=== PATIENT | male | born 2000 | race Caucasian/White ===

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

== ENCOUNTER 2020-09-25 21:32 | Emergency (ER) | payer OTHER, SELFPAY ==
[2020-09-25 21:44] VITALS: BP 141/63; PULSE 94; RESP 15; TEMP 36.9; O2SAT 100; BMI 19.9
--- NOTE | 2020-09-25 22:47 | ED.DENTAL ---
HPI - Dental/Oral General Chief complaint: Dental/Oral Stated complaint: severe mouth pain Time Seen by Provider: 09/25/20 22:46 Source: patient Mode of arrival: Ambulatory Limitations: no limitations History of Present Illness HPI Narrative: This is a 20-year-old male who has had several days of pain in the soft tissue surrounding the 17th tooth and posteriorly. Patient states that he has had increasing discomfort and swelling. He denies swelling of the back of his throat, he denies sore throat. Patient denies any swelling of the face, cheek. He states the pain has been radiating towards the top of his palate. Patient denies any radiation pain to the ear he denies any stridor, hoarseness or dysphagia. Patient states it is painful for him to completely open his mouth. He also states that it is uncomfortable for him to chew pain did origin 8 at the 17th tooth range and in the jaw. He has had similar symptoms on the other side for very short periods. He had has had a history of a root canal but this was 1-2 years prior. He denies fevers, chills no other systemic symptoms. He denies any other medical issues. He has had no trauma, cracked teeth or similar episodes at that location. He denies any other surgeries. No regular medications. He has tried Tylenol which has been minimally to moderately helpful as well as Anusol. MD Complaint: tooth pain Location: Tooth # (17) Related Data Previous Rx's Medication Instructions Recorded penicillin V potassium 500 mg PO QID #40 tab 09/25/20 Allergies Allergy/AdvReac Type Severity Reaction Status Date / Time No Known Drug Allergies Allergy Verified 09/25/20 21:44 Review of Systems Review of Systems ROS Unobtainable: All systems reviewed & are unremarkable except as noted in HPI and below Patient History Social History Smoking Status: Current every day smoker Smoking Status: Current every day smoker tobacco type: e-cigarettes alcohol intake frequency: a few times a week Substance Use Type: does not use Exam Narrative Exam Narrative: GEN: well nourished, well appearing male, alert and oriented x 3, patient appears to be in mild distress. HEENT: Atraumatic, pupils are equal round reactive to light, extraocular movements are intact, nares are clear, TMs are clear with no fluid, there is no conjunctival pallor. Throat is clear without any exudates, erythema, bilateral tonsillar enlargement, with no uvular deviation. Patient has swelling of the soft tissue surrounding the 17 tooth and just posterior at the crease between the upper and lower draw. Patient has tenderness with palpation of the soft tissue. He does not have any purulent drainage. He does not have any facial swelling, no erythema or other skin changes. I am unable to palpate a fluctuant area. No hoarseness, no stridor or dysarthria. HEART: Regular rate and rhythm without murmur, clicks, rubs. LUNGS:Lungs clear to auscultation, no wheezes, rales, crackles, chest moves symmetrically ABD:bowel sounds normal, soft, non-tender, no guarding, rebound, rigidity, no masses noted, no hepatosplenomegaly MSCL: Non-tender,full range of motion, normal gait NEURO:CN 2-12 intact, sensation normal SKIN: See above description. Initial Vital Signs Initial Vital Signs: Vital Signs Temperature 98.5 F 09/25/20 21:44 Pulse Rate 94 H 09/25/20 21:44 Respiratory Rate 15 09/25/20 21:44 Blood Pressure 141/63 H 09/25/20 21:44 Pulse Oximetry 100 09/25/20 21:44 Course Orders Ordered: Discontinued Medications Penicillin V Potassium (Penicillin 250 Mg Tab Prepack) 1 bottle MIS SEEINSTR ONE Stop: 09/25/20 22:56 Last Admin: 09/25/20 23:10 Dose: 1 bottle Documented by: MIKE Vital Signs Vital signs: Vital Signs - 8 hr 09/25/20 23:50 Pulse Rate 69 Respiratory Rate 17 Blood Pressure 118/56 L Pulse Oximetry 99 Discharge Plan Departure Patient Disposition: Home Clinical Impression: Dental infection Instructions: Tooth Abscess Activity Restrictions/Additional Instructions: Follow-up with a dentist in the next 1-2 weeks for recheck. Take antibiotics until they are completely gone, he will need to fill the prescription for your antibiotics and complete it. You may take Tylenol up to a 1000 mg every 8 hours and or ibuprofen up to 800 mg every 8 hours. You may use cold compresses to the area. You may use Anusol or Orajel prior to eating. Return to the ER for fevers greater than 100.4 F, swelling of the face, cheek, tongue, airway or throat changes to the voice, stridor, rapidly increasing pain, purulent drainage, persistent vomiting or other new or concerning symptoms Prescriptions: New penicillin V potassium 500 mg tablet 500 mg PO QID Qty: 40 RF: 0
[2020-09-25] MEDS: PENICILLIN 250 MG TAB PREPACK 1 BOTTLE MISC (23:10)
[2020-09-25 23:50] VITALS: BP 118/56; PULSE 69; RESP 17; O2SAT 99
== END 2020-09-26 00:35 | disposition home or self-care (01) ==
PROVIDERS: Emergency Provider Emergency Medicine
DX: K04.7 Periapical abscess without sinus (principal)
CPT/HCPCS: 99281; 99283

== ENCOUNTER 2021-01-06 03:08 | Emergency (ER) | payer OTHER, MEDICAID, SELFPAY ==
[2021-01-06 03:19] VITALS: BP 120/56; PULSE 63; RESP 16; TEMP 36.9; O2SAT 100; BMI 19.9
--- NOTE | 2021-01-06 03:31 | ED_ITS ---
HPI - General Adult General Chief complaint: Skin/Abscess/Foreign Body Stated complaint: recent tattoo, chest is red feels on fire Time Seen by Provider: 01/06/21 03:14 Source: patient Mode of arrival: Ambulatory Limitations: no limitations History of Present Illness HPI narrative: Patient is a 20-year-old male who 3 days ago had a tattoo on his chest. It was black ink. He states that he has had tattoos in the past without any issues. He states that yesterday he started having some itching and discomfort around the tattoo and that this evening it got worse. He states that it is burning and is red. Has not had any fevers. He did do VA lotion that he normally puts on his stat to. This is not a new exposures for him. Related Data Previous Rx's Medication Instructions Recorded penicillin V potassium 500 mg PO QID #40 tab 09/25/20 Allergies Allergy/AdvReac Type Severity Reaction Status Date / Time No Known Drug Allergies Allergy Verified 09/25/20 21:44 Review of Systems Constitutional Constitutional: Denies fever(s) Eyes Eyes: Denies itchy eyes ENT Ears, Nose, Mouth, and Throat: Denies lip swelling Cardiovascular Cardiovascular: Denies chest pain and Denies dyspnea Respiratory Respiratory: Denies dyspnea and Denies wheezing Integumentary/Breasts Skin/Breast: Reports rash Neurologic Neurologic: Denies behavioral changes Psychiatric Psychiatric: Denies behavioral changes Hematologic/Lymphatic On Anticoagulants: No Allergic/Immunologic Allergic/Immunologic: Denies urticaria, Denies itchy eyes, Denies lip swelling and Denies wheezing Patient History Medical History Healthy adult Social History Smoking Status: Current every day smoker Smoking Status: Current every day smoker tobacco type: e-cigarettes and vaping alcohol intake frequency: a few times a month Substance Use Type: does not use Exam Initial Vital Signs Initial Vital Signs: Vital Signs Temperature 98.4 F 01/06/21 03:19 Pulse Rate 63 01/06/21 03:19 Respiratory Rate 16 01/06/21 03:19 Blood Pressure 120/56 L 01/06/21 03:19 Pulse Oximetry 100 01/06/21 03:19 Const General: cooperative and comfortable Limitations: mental status not altered HENDE Head: normal to inspection and normocephalic Resp Effort & Inspection: normal respiratory effort Skin Other: The black ink tattoo on his chest looks well. There is some redness along the black ink lines and also in between the lines. There are no vesicles. No pustules. Neuro General: patient alert, patient awake and patient oriented x3 Extrem General: normal to inspection and capillary refill normal Psych Appearance: grossly normal and well kempt Course Orders Ordered: Discontinued Medications Diphenhydramine HCl (Diphenhydramine 25 Mg Tablet) 25 mg PO NOW ONE Stop: 01/06/21 03:34 Last Admin: 01/06/21 03:37 Dose: 25 mg Documented by: KIRSTY Vital Signs Vital signs: Vital Signs - 8 hr 01/06/21 03:19 Temperature 98.4 F Pulse Rate 63 Respiratory Rate 16 Blood Pressure 120/56 L Pulse Oximetry 100 Medical Decision Making MDM Narrative Medical decision making narrative: His presentation today appears to be more of a reactive issue rather than a infectious issue. He has never had a reaction like this in the past to tattoo ink. All of the lotions that he has used up to this point he has used in the past without any problems. No indication for antibiotics. I do have some hesitation is starting him on steroids because of the recent tattoo in the concerned about causing an infection. Will give him Benadryl. We did discuss topical Benadryl that he can use at home. Patient could be safely discharged home. He was given return precautions. Expressed understanding and agreement Discharge Plan Departure Patient Disposition: Home Clinical Impression: Tattoo reaction Instructions: Contact Dermatitis Activity Restrictions/Additional Instructions: The exam today is more consistent with a a reaction to the tattoo rather than an infection keep it clean as directed. You can take Benadryl for any itching or discomfort. You can also use the topical Benadryl that she can purchase [id number] like we discussed. Contact your primary provider for follow- up. Return to the emergency department for any new or worsening symptoms Prescriptions: No Action penicillin V potassium 500 mg tablet 500 mg PO QID Qty: 40 RF: 0
[2021-01-06] MEDS: diphenhydrAMINE 25 MG TABLET PO (03:37)
== END 2021-01-06 04:01 | disposition home or self-care (01) ==
PROVIDERS: Emergency Provider Emergency Medicine
DX: L23.89 Allergic contact dermatitis due to other agents (principal)
CPT/HCPCS: 99283

== ENCOUNTER 2021-01-07 13:44 | Emergency (ER) | payer OTHER, MEDICAID, SELFPAY ==
[2021-01-07 13:48] VITALS: BP 148/65; PULSE 80; RESP 16; TEMP 36.9; O2SAT 100
--- NOTE | 2021-01-07 17:34 | ED.SKABFB ---
HPI - Skin/Abscess/Foreign Bdy General Chief complaint: Skin/Abscess/Foreign Body Stated complaint: Rash on trunk/arms x3 days Time Seen by Provider: 01/07/21 17:33 Source: patient Mode of arrival: Ambulatory Limitations: no limitations History of Present Illness HPI narrative: This is a 20-year-old male who comes with complaint of rash on his trunk and arms. Patient states it has been present for 3 days. Patient had a tattoo. He put some localized salve on the area which he has used in the past without issue. Patient states that the redness and skin changes over the tattoo have improved but he has developed increasing redness and bumps over his hands on the dorsum. Patient has not had fevers, no chills. No chest pain or shortness of breath, no nausea, no vomiting no other GI or urinary symptoms. He has not appreciated rash elsewhere on his body. He states it is pruritic. Patient denies any known drug allergies. He is unaware of any known contact allergies. He does wear gloves at work but these are not latex. Related Data Previous Rx's Medication Instructions Recorded penicillin V potassium 500 mg PO QID #40 tab 09/25/20 permethrin 1 applic TOPICAL Q14D #60 g 01/07/21 prednisone 50 mg PO DAILY #5 tab 01/07/21 Allergies Allergy/AdvReac Type Severity Reaction Status Date / Time No Known Drug Allergies Allergy Verified 09/25/20 21:44 Review of Systems Review of Systems ROS Unobtainable: All systems reviewed & are unremarkable except as noted in HPI and below Patient History Medical History Healthy adult Social History Smoking Status: Current every day smoker Smoking Status: Current every day smoker tobacco type: e-cigarettes and vaping alcohol intake frequency: a few times a month Substance Use Type: does not use Exam Narrative Exam Narrative: GENERAL: Alert and oriented x three,, well-appearing male in mild distress HEENT: Head normocephalic, atraumatic, EOMI, pupils reactive, face symmetric, moist mucous membranes NECK: Supple, full range of motion CARDIOVASCULAR: Regular rate and rhythm without murmurs, rubs or gallops. RESPIRATORY: Breath sounds equal bilaterally, no wheezes rales or rhonchi. ABDOMEN: Soft, nontender. Normoactive bowel sounds all 4 quadrants. No guarding or rebound, rigidity, no mass : No CVA tenderness EXTREMITIES: Normal range of motion, no clubbing or edema. Neurovascularly intact NEUROLOGICAL: Cranial nerves II through XII grossly intact. Moving all extremities SKIN: Warm, dry, no petechiae. Patient has some very small erythematous lesions adjacent to his tattoo but he states this is significantly improved. There is no vesicles or blisters. Patient does have erythema over the dorsum of both which is mild with multiple small erythematous raised bumps. There is no vesicle, there is no pustule, there is no open wounds or sores. Patient does not have any palmar involvement. He does not have any additional rash noted elsewhere. Initial Vital Signs Initial Vital Signs: Vital Signs Temperature 98.4 F 01/07/21 13:48 Pulse Rate 80 01/07/21 13:48 Respiratory Rate 16 01/07/21 13:48 Blood Pressure 148/65 H 01/07/21 13:48 Pulse Oximetry 100 01/07/21 13:48 Course Vital Signs Vital signs: Vital Signs - 8 hr 01/07/21 13:48 Temperature 98.4 F Pulse Rate 80 Respiratory Rate 16 Blood Pressure 148/65 H Pulse Oximetry 100 MDM - Skin/Abscess/Foreign Bdy MDM Narrative Medical decision making narrative: This is a 20-year-old male who comes with complaint of rash on the trunk and his arms. Patient's rash on his anterior chest has improved significantly he has been using some topical steroid cream he has also been putting some on the posterior hands. The rash on his head and has not been improving. Patient has not had any other systemic symptoms. Reviewed with patient I suspect this may be a contact dermatitis related to the stab that he placed on his chest. If he used his hands to place this. But we did discuss there is other possibilities. I gave him a short course of prednisone to try see if this improves symptoms he can continue with Benadryl which he was made aware of. We did discuss possibly scabies although seems a lot less likely particularly with symptoms initially starting on the chest. The patient was given a prescription to try in the next week if he has not had any improvement. Discharge Plan Departure Patient Disposition: Home Clinical Impression: Rash and nonspecific skin eruption Instructions: DI for Contact Dermatitis Activity Restrictions/Additional Instructions: I suspect you have a contact dermatitis. This may be related to the lotion/salve that you applied before. Take steroids daily until gone. Take this medication with food. Your prescription was sent to [facility] in [place]. If you have continuing spreading rash and no improvement in the next 5 days use topical permethrin as prescribed. Return if you have fevers worsening rash, blistering or sloughing of your skin involvement of your mouth, lips or mucous membrane, new chest pain, shortness of breath, nausea vomiting, swelling of her extremities or other new or concerning symptoms. Prescriptions: New permethrin 5 % cream 1 applic topical Q14D Qty: 60 RF: 0 prednisone 50 mg tablet 50 mg PO DAILY Qty: 5 RF: 0 No Action penicillin V potassium 500 mg tablet 500 mg PO QID Qty: 40 RF: 0 Stand Alone Forms: Work Release Note
--- NOTE | 2021-01-07 17:53 | PC.NURSE ---
c/o rash around new tatoo. No s/s of infection. Easy work of breathing. No nausea / vomiting.
== END 2021-01-07 17:55 | disposition home or self-care (01) ==
PROVIDERS: Emergency Provider Emergency Medicine
DX: R21 Rash and other nonspecific skin eruption (principal)
CPT/HCPCS: 99281

== ENCOUNTER → 2021-02-06 12:32 | Outpatient (CLI) | payer OTHER, MEDICAID, SELFPAY ==
[2021-02-06 13:03] LABS: COVID19 -Nasal RAPID Negative (Negative)
== END ==
PROVIDERS: Visit Provider Physician Assistant
DX: J20.9 Acute bronchitis, unspecified (principal); R05 Cough; Z20.822 Contact with and (suspected) exposure to COVID-19
CPT/HCPCS: 87070; 87077; 87147; 87635

== ENCOUNTER 2021-04-11 13:32 | Emergency (ER) | payer OTHER, MEDICAID, BC, SELFPAY ==
[2021-04-11 13:37] VITALS: BP 113/71; PULSE 83; RESP 16; TEMP 36.7; O2SAT 100; BMI 17.7
--- NOTE | 2021-04-11 15:35 | ED.BACK ---
HPI - Back Pain/Injury General Chief Complaint: Back Pain/Injury Stated Complaint: Back Pain Time Seen by Provider: 04/11/21 15:28 Source: patient Limitations: no limitations History of Present Illness HPI Narrative: Patient is a 21-year-old male here for evaluation of left lower back discomfort. Has been going on for the past several weeks. He has tried occasional doses of ibuprofen at home without any improvement. No fevers. No specific trauma. Has not seen his primary doctor about the symptoms. No urinary symptoms. No bowel symptoms. The skin rashes. Related Data Previous Rx's Medication Instructions Recorded permethrin 5 % topical cream 1 applic TOPICAL Q14D #60 g 01/07/21 prednisone 50 mg tablet 50 mg PO DAILY #5 tab 01/07/21 cyclobenzaprine 10 mg tablet 10 mg PO TID PRN #20 tab 04/11/21 Allergies Allergy/AdvReac Type Severity Reaction Status Date / Time No Known Drug Allergies Allergy Verified 02/06/21 12:36 Review of Systems Constitutional Constitutional: Denies fever(s) Cardiovascular Cardiovascular: Reports system reviewed and no additional complaints, except as documented Respiratory Respiratory: Reports system reviewed and no additional complaints, except as documented Gastrointestinal Gastrointestinal: Denies abdominal pain Musculoskeletal Musculoskeletal: Reports back pain and Denies tingling Integumentary/Breasts Skin/Breast: Denies rash Neurologic Neurologic: Denies radicular pain, Denies tingling and Denies paresthesias Psychiatric Psychiatric: Reports system reviewed and no additional complaints, except as documented Hematologic/Lymphatic On Anticoagulants: No Patient History Medical History Healthy adult Social History Smoking Status: Current every day smoker Smoking Status: Current every day smoker tobacco type: e-cigarettes and vaping alcohol intake frequency: a few times a month Substance Use Type: does not use Exam Initial Vital Signs Initial Vital Signs: Vital Signs Temperature 98.0 F 04/11/21 13:37 Pulse Rate 83 04/11/21 13:37 Respiratory Rate 16 04/11/21 13:37 Blood Pressure 113/71 04/11/21 13:37 Pulse Oximetry 100 04/11/21 13:37 HENMT Head: normal to inspection Resp Effort & Inspection: normal respiratory effort Cardio Rate: regular rate GI Palpation: soft and No guarding Back/Spine/Pelvis Thoracic/Lumbar Spine: paraspinal tenderness and No thoracic spinal tenderness Skin General: no rashes or lesions noted Neuro General: patient alert, patient awake and patient oriented x3 Extrem General: normal to inspection and capillary refill normal Psych Appearance: grossly normal and well kempt Course Orders Ordered: Discontinued Medications Ketorolac Tromethamine (Ketorolac 30 Mg/Ml Vial) 30 mg IM NOW ONE Stop: 04/11/21 15:37 Last Admin: 04/11/21 15:51 Dose: 30 mg Documented by: ЕЛЕНА Vital Signs Vital signs: Vital Signs - 8 hr 04/11/21 13:37 Temperature 98.0 F Pulse Rate 83 Respiratory Rate 16 Blood Pressure 113/71 Pulse Oximetry 100 MDM - Back Pain/Injury MDM Narrative Medical decision making narrative: Patient has had symptoms for the past several weeks. No skin rashes over the area concerning for zoster. No fevers. No trauma. I feel that we can hold on any imaging studies for now. Low suspicion for cauda equina. We did discuss the appropriate use of anti-inflammatories. Also sent home with muscle relaxers. Given return precautions and follow-up instructions. Expressed understanding and agreement. Discharge Plan Departure Patient Disposition: Home Clinical Impression: Strain of lumbar region Instructions: DI for Back Strain or Sprain Activity Restrictions/Additional Instructions: Recommend that you continue with an anti-inflammatory such as Motrin/ibuprofen or Naprosyn. Please take this with food. You can do 600 mg of Motrin/ibuprofen every 8 hours or 500 mg of Naprosyn every 12 hours as needed. Also use the muscle relaxers as needed. You do need to make contact with your primary doctor as you may need further evaluation and potential referral to physical therapy. return to the emergency department for any new or worsening symptoms Prescriptions: New cyclobenzaprine 10 mg tablet 10 mg PO TID PRN (Reason: muscle spasm) Qty: 20 RF: 0 No Action permethrin 5 % cream 1 applic topical Q14D Qty: 60 RF: 0 prednisone 50 mg tablet 50 mg PO DAILY Qty: 5 RF: 0 Referrals: Miscellaneous,Doctor, MD [Primary Care Provider] - Stand Alone Forms: Work Release Note
[2021-04-11] MEDS: KETOROLAC 30 MG/ML VIAL IM (15:51)
== END 2021-04-11 16:02 | disposition home or self-care (01) ==
PROVIDERS: Emergency Provider Emergency Medicine
DX: S39.012A Strain of muscle, fascia and tendon of lower back, initial encounter (principal)
CPT/HCPCS: 96372; 99283; J1885

== ENCOUNTER 2022-04-08 11:57 | Emergency (ER) | payer OTHER, MEDICAID, SELFPAY ==
[2022-04-08 12:00] VITALS: BP 131/62; PULSE 83; RESP 16; TEMP 36.8; O2SAT 100; BMI 19.2
[2022-04-08 13:43] LABS: Add Manual Diff / Slide Review NO; Basophils Absolute Auto 100 /uL (0-100); Basophils Percent Auto 1.1 % (0-2); Eosinophils Absolute Auto 200 /uL (0-450); Eosinophils Percent Auto 2.4 % (2-4); Hematocrit 43.9 % (41-53); Hemoglobin 15.2 g/dL (13.5-17.5); Lymphocytes Absolute Auto 1400 /uL (1100-4500); Lymphocytes Percent Auto 17.9 % (25-40); Mean Corpuscular HGB Conc 34.6 % (30-36); Mean Corpuscular Hemoglobin 30.6 PG (26-34); Mean Corpuscular Volume 88.3 fL (80-100); Monocytes Absolute Auto 600 /uL (0-900); Monocytes Percent Auto 8.2 % (3-14); Neutrophils Absolute Auto 5400 /uL (1500-7000); Neutrophils Percent Auto 70.4 % (50-75); Platelet Count 292 X10^3/uL (150-400); Red Blood Cell Count 4.97 X10^6/uL (4.5-5.9); Red Cell Distribution Width 12.7 % (11.6-14.8); White Blood Cell Count 7.7 X10^3/uL (4.5-11.0)
[2022-04-08 13:47] LABS: Alanine Aminotransferase 27 IU/L (<50); Albumin 4.9 g/dL (3.5-5.0); Albumin Globulin Ratio 1.4 (1.0-2.8); Alkaline Phosphatase 66 U/L (38-126); Aspartate Aminotransferase 35 IU/L (17-59); BUN Creatinine Ratio 15.1 (6-22); Bilirubin Total 0.6 mg/dL (0.2-1.3); Blood Urea Nitrogen 11 mg/dL (9-20); Calcium 9.6 mg/dL (8.4-10.2); Carbon Dioxide 33 mmol/L (22-32); Chloride 101 mmol/L (98-107); Estimated Glomerular Filt Rate > 60 mL/min (>60); Globulin 3.4 g/dL (1.7-4.1); Glucose 121 mg/dL (70-100); HEMOLYSIS < 15 (0-50); Lipase 70 U/L (23-300); Potassium 4.4 mmol/L (3.4-5.1); Sodium 140 mmol/L (137-145); Total Protein 8.3 g/dL (6.3-8.2)
--- NOTE | 2022-04-08 15:00 | ED_ITS ---
HPI - Nausea/Vomiting/Diarrhea <KEENAN Jimenez - Last Filed: 04/08/22 20:09> General Chief complaint: Nausea/Vomiting/Diarrhea Stated complaint: sent by provider, cant eat, puking blood, migraine Time Seen by Provider: 04/08/22 13:56 Source: patient Mode of arrival: Ambulatory History of Present Illness HPI Narrative: This is a 22-year-old male who presents to the emergency department reporting that he has recently started taking multiple supplements including vitamin-C, D, zinc, biotin, iron, magnesium, and fish oil and reports that he also quit nicotine cold turkey. Reports having nausea and vomiting after eating last night, emesis x1 last night with streak of blood in it. He endorses having a h eadache for the last three days, feeling jittery and unwell. He denies any fever, shortness of breath, endorses nausea and feeling nauseated. He denies any history of GI bleeding in the past, denies taking any significant amount ibuprofen, denies any smoking or nicotine at this time and states that cold turkey four days ago. Patient denies any diarrhea, any recent illness, denies any blood in his stool or any tarry stools. Reports that his bowel movements have been regular, denies any urinary changes. Related Data Previous Rx's Medication Instructions Recorded permethrin 5 % topical cream 1 applic topical Q14D 2 doses #60 01/07/21 grams prednisone 50 mg tablet 50 mg PO DAILY #5 tabs 01/07/21 cyclobenzaprine 10 mg tablet 10 mg PO TID PRN muscle spasm #20 04/11/21 tabs omeprazole 20 mg tablet,delayed 20 mg PO DAILY 2 weeks #20 tabs 04/08/22 release ondansetron 4 mg disintegrating 4 mg PO Q8H PRN nausea #10 tabs 04/08/22 tablet Allergies Allergy/AdvReac Type Severity Reaction Status Date / Time No Known Drug Allergies Allergy Verified 02/06/21 12:36 Review of Systems <KEENAN Jimenez - Last Filed: 04/08/22 20:09> Review of Systems Narrative: General: denies fever, chills Head/Neck: denies headache, neck pain Eyes: denies visual changes, eye pain Cardio: denies chest pain, palpitations Respiratory: denies shortness of breath, cough GI: denies abdominal pain at baseline but endorses feeling nauseated, denies any vomiting, diarrhea, or blood in his stool : denies dysuria, hematuria or flank pain MSK: denies new joint pain, muscle weakness or swelling Skin: denies rash, itching or wound Neuro: denies numbness, tingling, dizziness Patient History <KEENAN Jimenez - Last Filed: 04/08/22 20:09> Medical History Healthy adult Social History Smoking Status: Current every day smoker Smoking Status: Current every day smoker tobacco type: e-cigarettes and vaping alcohol intake frequency: a few times a month Substance Use Type: marijuana Exam <KEENAN Jimenez - Last Filed: 04/08/22 20:09> Narrative Exam Narrative: Independently reviewed vitals signs and nursing notes. General: cooperative, comfortable, in no acute distress, well groomed Head: atraumatic, symmetrical facial expressions Neck: supple Eyes: equal round and reactive, EOMI, conjunctiva normal Nose: nares patent, no rhinorrhea Mouth/Throat: moist mucus membranes Cardiovascular: regular rate and rhythm, no peripheral edema, warm extremities Respiratory: normal effort, able to speak in complete sentences, no audible wheezing, stridor, or rales. No retractions or tachypnea. GI: abdomen soft, nontender to palpation, nondistended, no masses, no exquisite tenderness with exam, without guarding or rebound. MSK: moves all extremities, neurovascularly intact, no weakness, normal tone Skin: brisk capillary refill, no rash, no erythema Neuro: normal speech and cognition, A&O x3 Psych: mental status is grossly normal, congruent mood, normal affect, pleasant and cooperative Initial Vital Signs Initial Vital Signs: Vital Signs Temperature 98.2 F 04/08/22 12:00 Pulse Rate 83 04/08/22 12:00 Respiratory Rate 16 04/08/22 12:00 Blood Pressure 131/62 04/08/22 12:00 Pulse Oximetry 100 04/08/22 12:00 Oxygen Delivery Method 04/08/22 12:00 <Lane Morales DO - Last Filed: 04/14/22 00:39> Initial Vital Signs Initial Vital Signs: Vital Signs Temperature 98.2 F 04/08/22 12:00 Pulse Rate 83 04/08/22 12:00 Respiratory Rate 16 04/08/22 12:00 Blood Pressure 131/62 04/08/22 12:00 Pulse Oximetry 100 04/08/22 12:00 Oxygen Delivery Method 04/08/22 12:00 Course <KEENAN Jimenez - Last Filed: 04/08/22 20:09> Orders Ordered: Discontinued Medications Al Hydrox/Mg Hydrox/Simethicone 20 ml/ Lidocaine HCl 15 ml 0 ml PO NOW ONE Stop: 04/08/22 14:38 Last Admin: 04/08/22 15:06 Dose: Not Given Documented By: AMU Ondansetron HCl (Ondansetron 4 Mg Odt) 4 mg SL NOW ONE Stop: 04/08/22 14:38 Last Admin: 04/08/22 15:06 Dose: Not Given Documented By: AMU Pantoprazole Sodium (Pantoprazole Dr 20 Mg Tablet) 20 mg PO NOW ONE Stop: 04/08/22 14:38 Last Admin: 04/08/22 15:06 Dose: Not Given Documented By: AMU Vital Signs Vital signs: Vital Signs - 8 hr 04/08/22 15:07 Pulse Rate 80 Respiratory Rate 14 Blood Pressure 120/62 Pulse Oximetry 99 Oxygen Delivery Method Room Air <Lane Morales DO - Last Filed: 04/14/22 00:39> Orders Ordered: Discontinued Medications Al Hydrox/Mg Hydrox/Simethicone 20 ml/ Lidocaine HCl 15 ml 0 ml PO NOW ONE Stop: 04/08/22 14:38 Last Admin: 04/08/22 15:06 Dose: Not Given Documented By: AMU Ondansetron HCl (Ondansetron 4 Mg Odt) 4 mg SL NOW ONE Stop: 04/08/22 14:38 Last Admin: 04/08/22 15:06 Dose: Not Given Documented By: AMU Pantoprazole Sodium (Pantoprazole Dr 20 Mg Tablet) 20 mg PO NOW ONE Stop: 04/08/22 14:38 Last Admin: 04/08/22 15:06 Dose: Not Given Documented By: AMU Vital Signs Vital signs: Vital Signs - 8 hr 04/08/22 15:07 Pulse Rate 80 Respiratory Rate 14 Blood Pressure 120/62 Pulse Oximetry 99 Oxygen Delivery Method Room Air MDM - Nausea/Vomiting/Diarrhea <KEENAN Jimenez - Last Filed: 04/08/22 20:09> Lab Data Result diagrams: 04/08/22 13:20 04/08/22 13:20 Labs: Lab Results 04/08/22 04/08/22 Range/Units 13:20 13:20 WBC 7.7 (4.5-11.0) X10^3/uL RBC 4.97 (4.5-5.9) X10^6/uL Hgb 15.2 (13.5-17.5) g/dL Hct 43.9 (41-53) % MCV 88.3 (80-100) fL MCH 30.6 (26-34) PG MCHC 34.6 (30-36) % RDW 12.7 (11.6-14.8) % Plt Count 292 (150-400) X10^3/uL Neut % (Auto) 70.4 (50-75) % Lymph % (Auto) 17.9 L (25-40) % [place] % (Auto) 8.2 (3-14) % Eos % (Auto) 2.4 (2-4) % Baso % (Auto) 1.1 (0-2) % Neut # (Auto) 5400 (3088-6871) /uL Lymph # (Auto) 1400 (8812-4783) /uL [place] # (Auto) 600 (0-900) /uL Eos # (Auto) 200 (0-450) /uL Baso # (Auto) 100 (0-100) /uL Sodium 140 (137-145) mmol/L Potassium 4.4 (3.4-5.1) mmol/L Chloride 101 (98-107) mmol/L Carbon Dioxide 33 H (22-32) mmol/L BUN 11 (9-20) mg/dL Creatinine 0.73 (0.66-1.25) mg/dL Estimated GFR > 60 (>60) mL/min BUN/Creatinine Ratio 15.1 (6-22) Glucose 121 H (70-100) mg/dL Calcium 9.6 (8.4-10.2) mg/dL Total Bilirubin 0.6 (0.2-1.3) mg/dL AST 35 (17-59) IU/L ALT 27 (<50) IU/L Alkaline Phosphatase 66 (38-126) U/L Total Protein 8.3 H (6.3-8.2) g/dL Albumin 4.9 (3.5-5.0) g/dL Globulin 3.4 (1.7-4.1) g/dL Albumin/Globulin Ratio 1.4 (1.0-2.8) Lipase 70 (23-300) U/L [facility] Narrative Medical decision making narrative: This is a 22-year-old male who presents to the emergency department complaining of quitting nicotine four days ago and starting supplements and he has been nauseated, had a headache for the last three days, vomited after his meals few times feels poorly. Patient denies any fever any significant illness just reports feeling generally unwell. He endorses a streak of blood in his emesis last night, reports that he felt nauseated after eating his food and vomited x1. He denies any blood in his stool, any tarry stools, any weakness, fever, or other symptoms. His lab work today is unremarkable, he does not have any anemia, there were no significant findings, no elevation is his liver enzymes. Patient was offered a GI cocktail, Protonix, and Zofran for his symptoms, he declines. Discussed the reason for his symptoms and potentially the blood in his emesis, patient wishes to have these medications at home and states that he feels okay right now does not need them right now. Patient was prescribed omeprazole and Zofran, encouraged him to avoid taking his supplements on an empty stomach, to treat his nicotine withdrawal with nicotine gum or patch or other as needed option if he wishes otherwise to stay hydrated and support himself through the symptoms if he is able. Encouraged him to use Tylenol for any pain and to avoid ibuprofen, smoking, acidic foods and alcohol and caffeine. Patient understands to follow-up with his primary care provider and/or return to the emergency department for any new or worsening symptoms. He was given strict return precautions for his abdominal pain. Patient is appropriate and amenable to discharge home. Vital signs are stable on repeat examination is unremarkable. Patient has been informed of results. Patient has been given strict return to ER precautions for any new or worsening symptoms. No peritoneal signs on abdominal exam. Patient remains p.o. tolerant. Serial abdominal exam without increase in abdominal pain. Given history and exam, low suspicion for acute abdominal process, such as acute cholecystitis, pancreatitis, perforated viscus, atypical appendicitis, colitis, diverticulitis or torsion. Extensive conversation about ER return precautions and need for close follow-up. Patient understands to follow up closely with outpatient prov iders as instructed. Patient understands plan and agrees to discharge home. All questions and concerns answered at this time. <Lane Morales DO - Last Filed: 04/14/22 00:39> Lab Data Labs: Lab Results 04/08/22 04/08/22 Range/Units 13:20 13:20 WBC 7.7 (4.5-11.0) X10^3/uL RBC 4.97 (4.5-5.9) X10^6/uL Hgb 15.2 (13.5-17.5) g/dL Hct 43.9 (41-53) % MCV 88.3 (80-100) fL MCH 30.6 (26-34) PG MCHC 34.6 (30-36) % RDW 12.7 (11.6-14.8) % Plt Count 292 (150-400) X10^3/uL Neut % (Auto) 70.4 (50-75) % Lymph % (Auto) 17.9 L (25-40) % [place] % (Auto) 8.2 (3-14) % Eos % (Auto) 2.4 (2-4) % Baso % (Auto) 1.1 (0-2) % Neut # (Auto) 5400 (3041-6812) /uL Lymph # (Auto) 1400 (2886-7444) /uL [place] # (Auto) 600 (0-900) /uL Eos # (Auto) 200 (0-450) /uL Baso # (Auto) 100 (0-100) /uL Sodium 140 (137-145) mmol/L Potassium 4.4 (3.4-5.1) mmol/L Chloride 101 (98-107) mmol/L Carbon Dioxide 33 H (22-32) mmol/L BUN 11 (9-20) mg/dL Creatinine 0.73 (0.66-1.25) mg/dL Estimated GFR > 60 (>60) mL/min BUN/Creatinine Ratio 15.1 (6-22) Glucose 121 H (70-100) mg/dL Calcium 9.6 (8.4-10.2) mg/dL Total Bilirubin 0.6 (0.2-1.3) mg/dL AST 35 (17-59) IU/L ALT 27 (<50) IU/L Alkaline Phosphatase 66 (38-126) U/L Total Protein 8.3 H (6.3-8.2) g/dL Albumin 4.9 (3.5-5.0) g/dL Globulin 3.4 (1.7-4.1) g/dL Albumin/Globulin Ratio 1.4 (1.0-2.8) Lipase 70 (23-300) U/L Discharge Plan Departure Patient Disposition: Home Clinical Impression: Nicotine withdrawal Gastritis Qualifiers: Gastritis type: unspecified gastritis Chronicity: acute Gastritis bleeding: with bleeding Qualified Code(s): K29.01 - Acute gastritis with bleeding Instructions: Nicotine Addiction, DI for Gastritis Activity Restrictions/Additional Instructions: *You have been diagnosed with gastritis, this is inflammation of the stomach lining, sometimes it bleeds, this is known an ulcer. Sometimes gastritis happens from alcohol use, taking too much ibuprofen, lots of stress and an empty stomach, medications can cause this, and I assume that you are feeling poorly both due to the nicotine withdrawals and the changes of medications and addition of new medications. Please ensure that you a full stomach when your taking these medications. Please take the omeprazole 1st thing in the morning to prevent acid production in your stomach. After a couple of weeks, your stomach lining should be healed enough where it shouldn't bleed. Take the nausea once every 8 hours as needed for nausea. Stay hydrated, drink plenty of water, avoid ibuprofen, alcohol, and smoking. I hope you feel better soon. You can use Maalox, Tums, or food to act as a barrier and coat your stomach. *What to do: *Please continue to take your regular medications as directed. [x ] New medication prescriptions sent to your pharmacy: [[facility] ] [ ] New medication written as a paper prescription [ ] No new medications given *Please follow up with your primary care provider in 2-3 days, call for an appointment. Let them know you were seen in the Emergency Department and that we asked that you be seen for follow-up. We will electronically transmit a record of today's note if your PCP is in our system *If you do not have a primary care provider please contact [phone] to establish care with one of the [facility] primary care providers. *Return to Emergency Department if you should have any new, worsening or concerning symptoms, such as [fever greater than 101F, chills, worsening pain, persistent vomiting or other bothersome symptoms] Prescriptions: New omeprazole 20 mg tablet,delayed release (DR/EC) 20 mg PO DAILY 14 Days Qty: 20 0RF ondansetron 4 mg tablet,disintegrating 4 mg PO Q8H PRN (Reason: nausea) Qty: 10 0RF No Action permethrin 5 % cream 1 applic topical Q14D Qty: 60 0RF Rx Instructions: apply second treatment 14 days after first treatment if live lice remain prednisone 50 mg tablet 50 mg PO DAILY Qty: 5 0RF cyclobenzaprine 10 mg tablet 10 mg PO TID PRN (Reason: muscle spasm) Qty: 20 0RF Referrals: Dilcia Mayo MD [Primary Care Provider] - Visit Report Forms: Patient Portal/API <Lane Morales DO - Last Filed: 04/14/22 00:39> Cosign ED Attending Cosignature Attestation: I was immediately available in the department for consultation. This documentation has been reviewed and I agree with assessment and plan. Supervised by Lane Morales DO
[2022-04-08 15:07] VITALS: BP 120/62; PULSE 80; RESP 14; O2SAT 99
== END 2022-04-08 15:07 | disposition home or self-care (01) ==
PROVIDERS: Emergency Medicine; Emergency Provider Nurse Practitioner Critical Care Medicine; PCP Family Medicine
DX: K29.01 Acute gastritis with bleeding (principal); F17.203 Nicotine dependence unspecified, with withdrawal
CPT/HCPCS: 36415; 80053; 83690; 85025; 99283